=== PATIENT | female | born 1990 | race American Indian/Alaskan Native ===

== ENCOUNTER 2017-03-28 10:29 | Emergency (ER) | payer OTHER ==
[2017-03-28 10:45] VITALS: BP 108/74; PULSE 68; RESP 18; TEMP 98.5; O2SAT 98
--- NOTE | 2017-03-28 10:47 | C.PDOC ---
History Of Present Illness B/L EYE REDNESS X 2 DAYS. +DC. PS WEARS CONTACTS BUT HASNT IN PAST SEV DAYS. S/ P RECENT URI. DENIES VISION CHANGE OR FB SENSATION EXAM NONTOXIC HEENT +B/L CONJUNCTIVITIS W WATER DC. NO PERIROB SWELL OR REDNESS. NO VISION DEF REMAINDER NEG Time Seen by Provider: 03/28/17 10:41 Chief Complaint (Nursing): Eye Problem History Per: Patient History/Exam Limitations: no limitations Onset/Duration Of Symptoms: Days Current Symptoms Are (Timing): Still Present Severity: Moderate Past Medical History Reviewed: Historical Data, Nursing Documentation, Vital Signs Vital Signs: Last Vital Signs Temp 98.5 F 03/28/17 10:42 Pulse 68 03/28/17 10:42 Resp 18 03/28/17 10:42 BP 108/74 03/28/17 10:42 Pulse Ox 98 03/28/17 10:42 - Medical History PMH: No Chronic Diseases Surgical History: No Surg Hx Family History: States: No Known Family Hx Review Of Systems Except As Marked, All Systems Reviewed And Found Negative. Eyes: Positive for: Redness, Other (no foreign body sensation). Negative for: Vision Change Physical Exam - Physical Exam Appears: Non-toxic, No Acute Distress Skin: Normal Color, Warm Head: Atraumatic, Normacephalic Eye(s): bilateral: Normal Inspection, Other (conjunctivitis with water discharge , no periorbital swelling or redness, no vision deficits) Ear(s): Bilateral: Normal Nose: Normal Neck: Supple Chest: Symmetrical Extremity: Normal ROM Neurological/Psych: Oriented x3, Normal Speech, Normal Cognition, Normal Motor, Normal Sensation Disposition Counseled Patient/Family Regarding: Diagnosis, Need For Followup, Rx Given - Disposition Referrals: Wilfredo Medley [Staff Provider] - Disposition: HOME/ ROUTINE Disposition Time: 10:46 Condition: GOOD Prescriptions: Ciprofloxacin 0.3% [Ciloxan 0.3% Ophth SOLN] 2 drop OD Q2 #1 bottle Instructions: Conjunctivitis (ED) Forms: [facility] (Greenlandic), Work Excuse - Clinical Impression Clinical Impression: Conjunctivitis - Scribe Statement The provider has reviewed the documentation as recorded by the Scribe Jin Chacon Provider Attestation: All medical record entries made by the Scribe were at my direction and personally dictated by me. I have reviewed the chart and agree that the record accurately reflects my personal performance of the history, physical exam, medical decision making, and the department course for this patient. I have also personally directed, reviewed, and agree with the discharge instructions and disposition.
== END 2017-03-28 11:17 | disposition home or self-care (01) ==
LOC: C.ER 10:29
DX: H10.9 Unspecified conjunctivitis (principal)